=== PATIENT | female | born 1935 | race Caucasian/White ===

== ENCOUNTER 2022-11-28 17:50 | Emergency (ER) | payer OTHER ==
[~2022-11-28] VITALS: Ht 160 cm; Wt 70.8 kg
[2022-11-28 17:52] VITALS: BP 193/102
--- NOTE | 2022-11-28 18:10 | NUR ---
Patient ambulated to bed 8 with family.
--- NOTE | 2022-11-28 18:14 | NUR ---
Dr. Zarate evaluating patient at bedside.
[2022-11-28] MEDS ORDERED: ACETAMINOPHEN EXTRA STRENGTH 500 MG TAB PO ONE (18:25)
--- NOTE | 2022-11-28 18:29 | NUR ---
Patient is being taken to CT via wheelchair.
--- NOTE | 2022-11-28 18:40 | NUR ---
Patient returned from CT
--- NOTE | 2022-11-28 18:42 | NUR ---
Lab at bedside
--- NOTE | 2022-11-28 18:54 | NUR ---
87 y/o female bib nephew for c/o headache and hand numbness x today. Per patient, she had hand numbness only when pain was strong. Denies any numbness at the time of assessment. Denies any fall or trauma. Denies any sick contacts or fevers. Per patient, took Ibuprofen for pain. Medical History: HTN NKDA
[2022-11-28 19:13] LABS: BASOPHILS # (AUTO) 0.1 K/uL (0.00-0.22); BASOPHILS % (AUTO) 0.7 % (0.0-2.0); EOSINOPHILS # (AUTO) 0.2 K/uL (0-0.4); EOSINOPHILS % (AUTO) 1.9 % (0.0-4.0); HEMATOCRIT 39.4 % (36-48); HEMOGLOBIN 13.3 g/dL (12.0-16.0); LYMPHOCYTES # (AUTO) 2.2 K/uL (2.5-16.5); LYMPHOCYTES % (AUTO) 22.7 % (20.5-51.1); MEAN CORPUSCULAR HEMOGLOBIN 29 pg (27-31); MEAN CORPUSCULAR HGB CONC 34 g/dL (33-37); MEAN CORPUSCULAR VOLUME 84.6 fL (80-94); MONOCYTES # (AUTO) 0.8 K/uL (0.8-1.0); MONOCYTES % (AUTO) 8.8 % (1.7-9.3); NEUTROPHILS # (AUTO) 6.4 K/uL (1.8-7.7); NEUTROPHILS % (AUTO) 65.9 % (42.2-75.2); PLATELET COUNT (AUTO) 277 K/uL (140-450); RED BLOOD CELL COUNT(AUTO) 4.66 MIL/uL (4.20-5.40); RED CELL DISTRIBUTION WIDTH 13.1 % (11.6-13.7); WHITE BLOOD COUNT (AUTO) 9.7 K/uL (4.8-10.8)
[2022-11-28 19:14] LABS: ALBUMIN 3.8 g/dL (3.4-5.0); ANION GAP 10.7 (8-16); ASPARTATE AMINOTRANSFERASE 19 U/L (15-37); CARBON DIOXIDE 29.2 mmol/L (21-32); CHLORIDE 101 mmol/L (98-107); CREATININE 1.6 mg/dL (0.6-1.3); GLUCOSE 166 mg/dL (74-106); POTASSIUM 3.9 mmol/L (3.5-5.1); SODIUM SERUM 137 mmol/L (136-145); TOTAL BILIRUBIN 0.3 mg/dL (0.0-1.0); UREA NITROGEN, BLOOD 30 mg/dL (7-18)
--- NOTE | 2022-11-28 19:16 | NUR ---
Report given to SHELLY Yost for transfer of care.
--- NOTE | 2022-11-28 19:25 | NUR ---
Dr. Ornelas at bedside
[2022-11-28] MEDS ORDERED: ACET-2619 PO (19:33)
--- NOTE | 2022-11-28 19:44 | NUR ---
Patient discharged with v/s stable. Written and verbal after care instructions given and explained. Patient alert, oriented and verbalized understanding of instructions. Ambulatory with steady gait. All questions addressed prior to discharge. ID band removed. Patient advised to follow up with PMD. Rx of Acetaminophen given. Opportunity to ask questions provided and answered.
== END 2022-11-28 19:44 | disposition home or self-care (01) ==
LOC: MED 17:50
DX: R51.9 Headache, unspecified (principal); R03.0 Elevated blood-pressure reading, without diagnosis of hypertension; Z79.899 Other long term (current) drug therapy
CPT/HCPCS: 36415; 70450; 71045; 80053; 84484; 85025; 93005; 99285; Q0092